=== PATIENT | male | born 1965 | race Caucasian/White ===

== ENCOUNTER 2023-07-01 21:46 | Emergency (ER) | payer OTHER, SELFPAY ==
[2023-07-01 21:47] VITALS: BP 167/73; PULSE 75; RESP 16; TEMP 36.6; O2SAT 98; BMI 42.7
--- NOTE | 2023-07-01 22:19 | EX.ED.DYSGE1 ---
HPI History of Present Illness Chief Complaint: Rash Informant: patient and family Narrative Narrative: Here with daughter evaluation recurrent urticarial lesions this evening. Intermittent symptoms 2 weeks ago however would go away. This evening daughter reports redness up to his neck. Denies lip or tongue swelling no dyspnea. Denies any change in soaps or detergents, daughter reports she changed dryer sheets 3 to 4 weeks ago, however when she first noticed symptoms she changed back to the previous dryer sheets. She also washed his clothes again. He denies any new foods. Denies any new medications. Took Zyrtec prior to arrival. Prior 2 weeks ago no previous similar symptoms. 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 This is not similar. History of diabetes reports last A1c in the 8 range. He states sugars are up and down at home. Prior similar symptoms: Yes [facility] Medical History Back pain due to injury COPD (chronic obstructive pulmonary disease) DM type 2 (diabetes mellitus, type 2) Erectile dysfunction Hyperlipidemia Hypertension Morbid obesity Neuropathy PATRICIA (obstructive sleep apnea) Rectal bleeding Retinopathy Seizures Sepsis Thrombocytopenia Home Medications atorvastatin 20 mg tablet 20 mg PO DAILY 06/15/23 [History Last Taken Unknown] cyclobenzaprine 10 mg tablet 10 mg PO TID PRN muscle spasm 06/15/23 [History Last Taken Unknown] dulaglutide 4.5 mg/0.5 mL subcutaneous pen injector (Trulicity) 4.5 mg subcut QWEEK 06/15/23 [History Last Taken Unknown] empagliflozin 25 mg tablet (Jardiance) 25 mg PO DAILY 06/15/23 [History Last Taken Unknown] furosemide 20 mg tablet 20 mg PO DAILY 06/15/23 [History Last Taken Unknown] gabapentin 600 mg tablet 600 mg PO DAILY 06/15/23 [History Last Taken Unknown] icosapent ethyl 1 gram capsule (Vascepa) 2 g PO BID 06/15/23 [History Last Taken Unknown] insulin detemir U-100 100 unit/mL (3 mL) subcutaneous pen 30 unit subcut QHS 06/15/23 [History Last Taken Unknown] lamotrigine 100 mg tablet 100 mg PO DAILY 06/15/23 [History Last Taken Unknown] levetiracetam 500 mg tablet 1,500 mg PO BID 06/15/23 [History Last Taken Unknown] losartan 50 mg tablet 50 mg PO DAILY 06/15/23 [History Last Taken Unknown] metformin 1,000 mg tablet 1,000 mg PO BID 06/15/23 [History Last Taken Unknown] penicillin V potassium 500 mg tablet 500 mg PO BID 06/15/23 [History Last Taken Unknown] sitagliptin phosphate 100 mg tablet 100 mg PO DAILY 06/15/23 [History Last Taken Unknown] prednisone 20 mg tablet 40 mg (2 x 20 mg) PO DAILY #10 TABLETS 07/01/23 [Rx Last Taken Unknown] Allergy/AdvReac Type Severity Reaction Status Date / Time phenytoin [From Dilantin] Allergy Intermediate Rash Verified 07/01/23 21:47 Family History (Updated 06/15/23 @ 16:02 by Quynh Lucia) Mother Diabetes Hypertension Hyperlipidemia Hyperchloremia Surgical History History of back surgery History of cholecystectomy History of tympanomastoidectomy Social History Smoking Status: Former smoker quit date: 07/19/12 Tobacco: How many years used: 10 alcohol intake: current alcohol intake frequency: holidays/special occasions only substance use type: does not use ROS ROS ED Constitutional Constitutional ED: Denies chills, fever(s) or sweats Eyes Eyes: Denies change in vision ENT ENT ED: Denies dysphagia or sore throat Cardiovascular Cardiovascular: Denies chest pain, leg edema, palpitations or racing heartbeat Respiratory/Chest Respiratory/Chest: Denies cough, dyspnea or dyspnea on exertion Gastrointestinal Gastrointestinal: Denies abdominal pain, diarrhea, nausea or vomiting Genitourinary Genitourinary ED: Denies dysuria, hematuria or urinary frequency Musculoskeletal Musculoskeletal: Denies back pain, extremity pain or neck pain Integumentary Reports rash; Denies wounds Neurologic Neurologic: Denies headache(s), paresthesias or weakness EXAM Physical Exam Const Vital Signs: 07/01/23 21:47 Temperature 97.8 F Temperature Source Temporal Pulse Rate 75 Respiratory Rate 16 Blood Pressure 167/73 H Blood Pressure Mean 104 Pulse Ox 98 Positive well nourished and well developed General Appearance ED: well developed and NAD HEENT Reports moist mucous membranes HEENT Narrative: No oral lesions. Airway patent. No lip or tongue swelling. normocephalic and atraumatic Eyes PERRL, EOMs intact bilaterally and conjunctivae normal General Eye ED: Yes normal appearance of both eyes Neck no lymphadenopathy and supple General: Negative for tenderness Chest Wall Chest: Negative for tenderness Resp normal respiratory effort and normal air movement Effort and Inspection: symmetric chest movement; Negative for respiratory distress Cardio regular rate, regular rhythm and no murmurs Peripheral Pulses: pulses 2+ throughout GI normal to inspection, nondistended, normoactive bowel sounds and non-tender Palpation: Negative for guarding or rebound tenderness present Back/Spine no CVA tenderness and no thoracic nor lumbar tenderness Extremity normal to inspection General Extremety ED: Negative for edema or tenderness General Extremity: Negative for edema Neuro oriented x3 and no sensory deficits noted Sensorium / Orientation: awake and alert Skin Skin Narrative: Diffuse scattered urticarial lesions primarily left upper extremity torso. No ulcerations. No indurations. MDM MDM MDM Narrative Medical decision making narrative: Interventions / MDM: Differential diagnosis: Urticaria Diagnosis considered but do not suspect: No clinical anaphylaxis My EKG interpretation: N/A Imaging independently reviewed and interpreted by myself: N/A External documents reviewed: N/A Test considered but not ordered:N/A ED course: Patient diffuse urticarial lesions no airway compromise. Blood glucose obtained was 280. Will treat currently with Pepcid and Benadryl and reevaluate. Reevaluation urticarial lesions were improving. He will continue Benadryl every 6 hours and Pepcid for which they state they will pick [id number]. He has Zyrtec to take daily. I did send prednisone to his pharmacy in case symptoms worsen so he can start taken and understands to check his sugars. Outpatient follow-up for allergy testing. All questions were answered. Strict return precautions. Re-evaluation: stable Disposition discussed with patient/family/significant other: Patient and daughter Case discussed with consulting clinician: N/A This note was generated with [employer] dictation software. It may contain incorrect words, spelling, and punctuation that were not noted in checking the note before signing. Lab Data Attestation: I reviewed the patient's lab results. Labs: Laboratory Results - last 24 hr 07/01/23 22:16 POC Glucose 280 H Discharge Plan Triage Chief Complaint: Rash ED Provider: Oscar Carpio Dx/Rx/DC Orders Clinical Impression: Urticaria, DM type 2 (diabetes mellitus, type 2), Rash Instructions: ED Hives (Adult) Prescriptions: New prednisone 20 mg tablet 40 mg PO DAILY Qty: 10 0RF No Action Trulicity 4.5 mg/0.5 mL pen injector 4.5 mg subcut QWEEK gabapentin 600 mg tablet 600 mg PO DAILY atorvastatin 20 mg tablet 20 mg PO DAILY cyclobenzaprine 10 mg tablet 10 mg PO TID PRN (Reason: muscle spasm) Jardiance 25 mg tablet 25 mg PO DAILY furosemide 20 mg tablet 20 mg PO DAILY icosapent ethyl [Vascepa] 1 gram capsule 2 g PO BID insulin detemir U-100 100 unit/mL (3 mL) insulin pen 30 unit subcut QHS lamotrigine 100 mg tablet 100 mg PO DAILY levetiracetam 500 mg tablet 1,500 mg PO BID losartan 50 mg tablet 50 mg PO DAILY metformin 1,000 mg tablet 1,000 mg PO BID penicillin V potassium 500 mg tablet 500 mg PO BID sitagliptin phosphate 100 mg tablet 100 mg PO DAILY Primary Care Provider: Meaghan Cruz NP Referrals: Meaghan Cruz NP, [facility] [Primary Care Provider] - 3-5 Days Activity Restrictions/Additional Instructions: Blood glucose 280. urticaria on clear etiology. New your Zyrtec at home daily. Use Benadryl 25 to 50 mg every 6 hours as needed. superintendent maintenance Pepcid 20 mg take twice a day for the next 5 days. If it seems to worsen, prednisone sent to your pharmacy to start taking, however monitor your glucose. If you develop any tongue or lip swelling or trouble breathing, return to the ED for reevaluation. Disposition Disposition: Home, Self Care Discharge Date/Time: 07/01/23 23:07
[2023-07-01] MEDS: DiphenhydrAMINE 25 MG Capsule 50 MG PO (22:23)
[2023-07-01] MEDS: Famotidine 20 MG Tablet PO (22:23)
[2023-07-01 22:33] LABS: Bedside Glucose 280 mg/dL (74-106)
== END 2023-07-01 23:07 | disposition home or self-care (01) ==
PROVIDERS: Emergency Provider Emergency Medicine; PCP Registered Nurse; Visit Provider Emergency Medicine
DX: L50.9 Urticaria, unspecified (principal); J44.9 Chronic obstructive pulmonary disease, unspecified; E11.40 Type 2 diabetes mellitus with diabetic neuropathy, unspecified; R21 Rash and other nonspecific skin eruption; G47.33 Obstructive sleep apnea (adult) (pediatric); Z87.891 Personal history of nicotine dependence
CPT/HCPCS: 82962; 99283